=== PATIENT | male | born 1965 | race Asian ===

== ENCOUNTER → 2019-06-12 | Outpatient (CLI) | payer OTHER ==
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
== END | disposition home or self-care (01) ==
LOC: KCIC US 12:01
PROVIDERS: ATTEND Registered Nurse
DX: M79.671 Pain in right foot (principal); W22.8XXA Striking against or struck by other objects, initial encounter; Y93.89 Activity, other specified; Y92.89 Other specified places as the place of occurrence of the external cause; Y99.8 Other external cause status
CPT/HCPCS: 76881

== ENCOUNTER 2019-07-08 14:03 | Emergency (ER) | payer OTHER ==
[~2019-07-08] VITALS: Ht 157.5 cm; Wt 72.6 kg
[2019-07-08 14:30] VITALS: BP 156/90
[2019-07-08] MEDS ORDERED: IBUPROFEN 400 MG TABLET. PO ONE (15:15)
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
[2019-07-08] MEDS ORDERED: IBUP-1007 PO (16:02)
[2019-07-08] MEDS ORDERED: ORPH100T PO (16:02)
[2019-07-08] MEDS ORDERED: HYDR-3164 PO (16:02)
== END 2019-07-08 17:00 | disposition home or self-care (01) ==
LOC: ER 14:03
DX: M25.561 Pain in right knee (principal); G89.11 Acute pain due to trauma; M17.11 Unilateral primary osteoarthritis, right knee; V46.4XXA Person boarding or alighting a car injured in collision with other nonmotor vehicle, initial encounter; Y93.89 Activity, other specified; Y92.488 Other paved roadways as the place of occurrence of the external cause; Y99.8 Other external cause status
CPT/HCPCS: 73564; 99284